=== PATIENT | male | born 1975 | race Caucasian/White ===

== ENCOUNTER 2023-02-20 08:27 | Day surgery (SDC) | payer MEDICAID ==
[~2023-02-20 08:27] MED LIST: Midazolam 1 MG/ML 2 ML SDV ONE; Propofol 200 MG/20 ML SDV ONE; fentaNYL 100 MCG/2 ML SDV ONE
[2023-02-20] MEDS ORDERED: Lactated Ringers 1,000 ML IV SCH (09:00)
== END 2023-02-20 10:32 | disposition home or self-care (01) ==
LOC: JP.SDS 08:27
PROVIDERS: ATTEND Family Medicine
DX: Z12.11 Encounter for screening for malignant neoplasm of colon (principal); D12.8 Benign neoplasm of rectum; K21.9 Gastro-esophageal reflux disease without esophagitis; E78.5 Hyperlipidemia, unspecified
CPT/HCPCS: 45380; J2250; J2704; J3010; 88305